=== PATIENT | female | born 1990 | race Caucasian/White ===

== ENCOUNTER 2020-01-03 02:41 | Emergency (ER) | payer OTHER ==
[~2020-01-03] VITALS: Ht 167.6 cm; Wt 59.0 kg
[~2020-01-03 02:41] MED LIST: PERCOCET 5-3251 EACH PO
[2020-01-03 03:08] VITALS: BP 150/110
== END 2020-01-03 03:08 ==
LOC: M.ERS 02:41
DX: Z02.89 Encounter for other administrative examinations (principal)

== ENCOUNTER 2020-01-03 04:44 | Emergency (ER) | payer OTHER | END 2020-01-03 05:50 | LOC: M.ERS 04:44 | DX: Z02.89 Encounter for other administrative examinations (principal) ==